=== PATIENT | male | born 1935 | race Caucasian/White ===

== ENCOUNTER 2018-01-23 12:44 | Emergency (ER) | payer MEDICARE ==
[2018-01-23] MEDS ORDERED: Lidocaine 1% w/Epinephrine 1:100K 20 ML VIAL ONE (13:00)
[2018-01-23] MEDS ORDERED: Adacel (T-DAP) 0.5 ML VIAL ONE (13:24)
[2018-01-23] MEDS ORDERED: Bacitracin Zinc 1 Packet ONE (13:24)
== END 2018-01-23 13:46 | disposition home or self-care (01) ==
LOC: SCSER 12:44
DX: S61.211A Laceration without foreign body of left index finger without damage to nail, initial encounter (principal); E11.9 Type 2 diabetes mellitus without complications; E03.9 Hypothyroidism, unspecified; E78.5 Hyperlipidemia, unspecified; I10 Essential (primary) hypertension; W26.0XXA Contact with knife, initial encounter; Z79.899 Other long term (current) drug therapy; Z79.82 Long term (current) use of aspirin
CPT/HCPCS: 12001; 90471; 90715; J2001

== ENCOUNTER 2018-01-30 09:40 | Emergency (ER) | payer MEDICARE | END 2018-01-30 10:08 | disposition home or self-care (01) | LOC: SCSER 09:40 | DX: S61.211D Laceration without foreign body of left index finger without damage to nail, subsequent encounter (principal); E03.9 Hypothyroidism, unspecified; E11.9 Type 2 diabetes mellitus without complications; E78.5 Hyperlipidemia, unspecified; I10 Essential (primary) hypertension; Z79.84 Long term (current) use of oral hypoglycemic drugs; Z79.82 Long term (current) use of aspirin; Z79.899 Other long term (current) drug therapy ==